=== PATIENT | male | born 1995 | race Caucasian/White ===

== ENCOUNTER 2017-07-25 14:08 | Emergency (ER) | payer BC, OTHER ==
--- NOTE | 2017-07-25 15:25 | RAD ---
Indication: Concussion. CT of the brain was performed without IV contrast. Ventricular structures are midline. No midline shift is noted. The extra-axial spaces are unremarkable. There is no evidence of intracranial mass or hemorrhage. No other high or low density lesions are identified. Mastoid air cells and paranasal sinuses are otherwise unremarkable. IMPRESSION: No intracranial lesion is identified.
[2017-07-25 16:03] VITALS: BP 136/76
--- NOTE | 2017-07-25 17:49 | ED ---
Head Injury - HPI Summary HPI Summary: Patient presents to the ED with CC of head injury. He states he was under a table when he immediately tried to get up and hit his head on the back of table. He states he did not have LOC. Denies memory loss. Notes to some confusion. Denies visual changes , but states he has been having some N/V since the incident and feeling extra fatigued. Denies weakness. Has never had a concussion. Denies previous head injuries. Denies anticoagulants. - History Of Current Complaint Chief Complaint: EDHeadInjury Stated Complaint: HIT HEAD/PAIN/DIZZY Time Seen by Provider: 07/25/17 14:33 Hx Obtained From: Patient Mechanism Of Injury: Blunt Trauma Onset/Duration: Started Days Ago Onset of Pain: Immediate Severity Currently: Mild Severity Initially: Mild Pain Intensity: 1 Pain Scale Used: 0-10 Numeric Location of Head Injury: Diffuse Location: Discrete At: Aggravating Factor(s): Movement Alleviating Factor(s): Rest, Ice - Risk Factors SDH Risk Factor: Negative - Allergies/Home Medications Allergies/Adverse Reactions: Allergies Allergy/AdvReac Type Severity Reaction Status Date / Time Poison Itzel Extract/Poison Allergy Unknown Rash And Unverified 03/04/14 11:01 [place] Extra Itching [From Poison Itzel/[place] Extract] Shellfish Allergy Allergy Vomiting Unverified 03/04/14 11:01 PMH/Surg Hx/FS Hx/Imm Hx Previously Healthy: Yes Musculoskeletal History: Denies: Hx Scoliosis Neurological History: Denies: Hx Headaches, Hx Migraine, Other Neuro Impairments/Disorders - Immunization History Hx Pertussis Vaccination: No Immunizations Up to Date: Unable to Obtain/Confirm Infectious Disease History: No Infectious Disease History: Denies: History Other Infectious Disease, Traveled Outside the [place] in Last 30 Days - Family History Known Family History: Positive: Cardiac Disease, Renal Disease - Social History Occupation: Employed Part-time Lives: With Family Alcohol Use: None Hx Substance Use: No Substance Use Type: Reports: None Hx Tobacco Use: No Smoking Status (MU): Never Smoked Tobacco Review of Systems Constitutional: Negative Eyes: Negative Cardiovascular: Negative Respiratory: Negative Gastrointestinal: Negative Genitourinary: Negative Positive: no symptoms reported, see HPI Skin: Negative Neurological: Other - confusion Positive: Headache Psychological: Normal All Other Systems Reviewed And Are Negative: Yes Physical Exam Triage Information Reviewed: Yes Vital Signs On Initial Exam: Initial Vitals Temp Pulse Resp BP Pulse Ox 99.7 F 95 20 151/80 100 07/25/17 14:21 07/25/17 14:21 07/25/17 14:21 07/25/17 14:21 07/25/17 14:21 Vital Signs Reviewed: Yes Appearance: Positive: Well-Appearing, Well-Nourished Skin: Positive: Warm, Skin Color Reflects Adequate Perfusion Head/Face: Positive: Normal Head/Face Inspection Eyes: Positive: EOMI, MARY BETH, Conjunctiva Clear Neck: Positive: Supple, No Lymphadenopathy Respiratory/Lung Sounds: Positive: Clear to Auscultation, Breath Sounds Present Cardiovascular: Positive: Normal, RRR, Pulses are Symmetrical in both Upper and Lower Extremities Musculoskeletal: Positive: Normal, Strength/ROM Intact Neurological: Positive: Sensory/Motor Intact, Alert, Oriented to Person Place, Time, CN Intact II-III, Reflexes Intact, Heel to Toe - OK, Finger to Nose - OK, Speech Normal Psychiatric: Positive: Normal AVPU Assessment: Alert - [place] Coma Scale Coma Scale Total: 15 Diagnostics - Vital Signs Vital Signs Temp Pulse Resp BP Pulse Ox 07/25/17 16:02 99.1 F 64 18 136/76 99 07/25/17 14:21 99.7 F 95 20 151/80 100 - Laboratory Lab Statement: Any lab studies that have been ordered have been reviewed, and results considered in the medical decision making process. Head Injury Course/Dx Course Of Treatment: GCS score >15 at 2h post injury. No suspected open or depressed skull fx, no sign of basal skull fx, no hemotympanum, raccoon eyes, Battles sign, CSF joy-/rhinorrhea, no emesis after injury, age <64yo, no amnesia greater than 30 minutes prior to trauma, and mechanism of injury was minimal impact with no MVA or fall greater than 3 ft. Complete neuro exam completed and WNL. Normal head/face inspection with no cephalohematoma. Reflexes intact. EOMI, MARY BETH, visual acuity intact. No obvious confusion or memory loss per patient and family. MMSE OK. GCS 15. Patient oriented to person, place and date. No obvious deformity or signs of trauma. Finger to nose , heel to toe OK. Speech normal, facial symmetry, normal gait, CN II-III intact. Patient denies LOC. ROM, strength, reflexes in upper and lower extremity intact, sensation intact. Patient discharged with return precautions and post-concussive symptoms explained to patient. Patient agrees to follow up and return if needed. CT completed and negative for any acute findings. - Diagnoses Differential Diagnosis/HQI/PQRI: Concussion With LOC, Concussion Without LOC, Contusion Provider Diagnoses: Concussion without loss of consciousness Discharge - Discharge Plan Condition: Stable Disposition: HOME Patient Education Materials: Concussion (ED), Post Concussion Syndrome (ED) Forms: *School Release, *Work Release Referrals: [facility] - Jt ALFARO [Primary Care Provider] - Additional Instructions: Brain rest as much as possible as discussed If any symptoms become worse - return to the ED
== END 2017-07-25 16:02 | disposition home or self-care (01) ==
LOC: ED 14:08
DX: S06.0X0A Concussion without loss of consciousness, initial encounter (principal); W22.8XXA Striking against or struck by other objects, initial encounter; Y93.9 Activity, unspecified; Y92.9 Unspecified place or not applicable; R51 Headache
CPT/HCPCS: 70450; 99281